=== PATIENT | female | born 1990 | race Caucasian/White ===

== ENCOUNTER 2016-06-24 12:08 | Emergency (ER) | payer BC ==
[2016-06-24 13:07] VITALS: BP 93/59
--- NOTE | 2016-06-24 13:30 | UC ---
Abdominal Pain Female HPI - HPI Summary HPI Summary: Constant epigastric pain x 1 week with nausea in the morning, worse after eating. Had 2 episodes of watery brown stool last night and one more this morning. Denies emesis, blood in stool, fever. Had similar sx about 10 years ago , was told she might have developed ulcers at that time but no f/u. Has been under a lot of stress in work and personal life recently. Took antidiarrheal last night and pill for her stomach that started with a G (thinks it was gaviscon) this morning -- the stomach pill helped a bit. - History of Current Complaint Chief Complaint: UCAbdominalPain Stated Complaint: STOMACH PAIN Time Seen by Provider: 06/24/16 12:53 Hx Obtained From: Patient Hx Last Menstrual Period: 06/14/16 ?: No Onset/Duration: Gradual Onset, Lasting Days Timing: Constant Severity Initially: Mild Severity Currently: Moderate Location: Epigastric Radiates: No Character: Aching, Other - "feels empty" Aggravating Factor(s): Food Alleviating Factor(s): Antacids Allergies/Adverse Reactions: Allergies Allergy/AdvReac Type Severity Reaction Status Date / Time No Known Allergies Allergy Verified 06/24/16 12:58 PMH/Surg Hx/FS Hx/Imm Hx Endocrine History Of: Reports: Thyroid Disease - "slightly hyperthyroid" Denies: Diabetes Cardiovascular History Of: Denies: Cardiac Disorders, Hypertension Respiratory History Of: Denies: COPD, Asthma GI/ History Of: Denies: Ulcer - Surgical History Surgical History: Yes Surgery Procedure, Year, and Place: GANGLION CYST REMOVAL (10 years ago). right wrist tendonitis (10 years ago) - Family History Known Family History: Positive: None, Hypertension - father Negative: Diabetes, Renal Disease - Social History Occupation: Employed Full-time Alcohol Use: Occasionally Alcohol Amount: 3 drinks/once a month Substance Use Type: None Smoking Status (MU): Light Every Day Tobacco Smoker Type: Cigarettes Amount Used/How Often: 1/3 pack per day Length of Time of Smoking/Using Tobacco: 8 years Have You Smoked in the Last Year: Yes - Immunization History Most Recent Influenza Vaccination: none Most Recent Tetanus Shot: unknown Most Recent Pneumonia Vaccination: unknown Review of Systems Constitutional: Negative Skin: Negative Eyes: Negative ENT: Negative Respiratory: Negative Cardiovascular: Negative Gastrointestinal: Abdominal Pain, Diarrhea Genitourinary: Negative Motor: Negative Neurovascular: Negative Musculoskeletal: Negative Neurological: Negative Psychological: Negative All Other Systems Reviewed And Are Negative: Yes Physical Exam Triage Information Reviewed: Yes Appearance: Well-Nourished, Pain Distress - holding abdomen Vital Signs: Initial Vital Signs Temp 97.8 F 06/24/16 12:55 Pulse 62 06/24/16 12:55 Resp 16 06/24/16 12:55 BP 93/59 06/24/16 12:55 Pulse Ox 100 06/24/16 12:55 Vital Signs Reviewed: Yes Eye Exam: Normal Eyes: Positive: Conjunctiva Clear ENT Exam: Normal ENT: Positive: Normal ENT inspection, Hearing grossly normal, Pharynx normal, TMs normal Dental Exam: Normal Neck exam: Normal Neck: Positive: Supple, Nontender, No Lymphadenopathy Respiratory Exam: Normal Respiratory: Positive: Chest non-tender, Lungs clear, Normal breath sounds, No respiratory distress, No accessory muscle use Cardiovascular Exam: Normal Cardiovascular: Positive: RRR, No Murmur Abdomen Description: Positive: No Organomegaly, Soft, Other: - mild tenderness in epigastric area. Negative: CVA Tenderness (R), CVA Tenderness (L), Distended , Guarding Musculoskeletal Exam: Normal Musculoskeletal: Positive: Strength Intact, ROM Intact Neurological Exam: Normal Neurological: Positive: Alert Psychological Exam: Normal Skin Exam: Normal Abd Pain Female Course/Dx - Differential Dx/Diagnosis Provider Diagnoses: gastritis. epigastric pain Discharge - Discharge Plan Condition: Stable Disposition: HOME Prescriptions: Omeprazole CAP* [Prilosec CAP* 20 MG] 20 mg PO BID #60 cap. Ondansetron TAB* [Zofran 4 MG Tab*] 4 mg PO Q6H PRN #20 tab PRN Reason: Nausea Patient Education Materials: Gastritis (ED), Epigastric Pain (ED) Forms: *Work Release Referrals: Vini Hopkins MD [Medical Doctor] - 2 Weeks Additional Instructions: Try eating a bland diet without greasy, spicy, or acidic food. If your symptoms improve, you can slowly add food back in to see if you have any particular triggers.
== END 2016-06-24 13:57 | disposition home or self-care (01) ==
LOC: UCCORT 12:08
DX: K29.70 Gastritis, unspecified, without bleeding (principal); R10.13 Epigastric pain; Z32.02 Encounter for pregnancy test, result negative; F17.210 Nicotine dependence, cigarettes, uncomplicated
CPT/HCPCS: 81003; 84702; 99212; G0463

== ENCOUNTER 2016-09-07 11:10 | Emergency (ER) | payer BC ==
[2016-09-07 11:28] VITALS: BP 101/52
--- NOTE | 2016-09-07 12:06 | UC ---
UC General HPI - HPI Summary HPI Summary: multiple joint pain x 1 week pain on both wrist, and both knees x 1 week , pain radiates to the forearm and thighs no fever, no chills, no known injury , no significant pmhx or family hx of autoimmune disease. - History of Current Complaint Chief Complaint: UCGeneralIllness Stated Complaint: ACHY EXTREMITIES Time Seen by Provider: 09/07/16 11:18 Hx Obtained From: Patient Onset/Duration: Gradual Onset, Lasting Days - 7, Still Present Timing: Constant Onset Severity: Moderate Current Severity: Moderate Pain Intensity: 5 Character: pain and achy Associated Signs & Symptoms: Positive: Weakness, Other - multiple joint pain. Negative: Agitation, Abdominal Pain, Anticoagulation Therapy, Back Pain, Confusion, Cough, Chest Pain, Palpitations - Allergy/Home Medications Allergies/Adverse Reactions: Allergies Allergy/AdvReac Type Severity Reaction Status Date / Time No Known Allergies Allergy Verified 09/07/16 11:22 Home Medications: Home Medications Acetaminophen [Acetaminophen Extra Stren] 500 mg PO Q4H PRN 09/07/16 [History Confirmed 09/07/16] PMH/Surg Hx/FS Hx/Imm Hx Previously Healthy: Yes - Surgical History Surgical History: Yes Surgery Procedure, Year, and Place: GANGLION CYST REMOVAL (10 years ago). right wrist tendonitis (10 years ago) - Family History Known Family History: Positive: None, Hypertension - father Negative: Diabetes, Renal Disease - Social History Alcohol Use: Occasionally Alcohol Amount: 3 drinks/once a month Substance Use Type: None Smoking Status (MU): Light Every Day Tobacco Smoker Type: Cigarettes Amount Used/How Often: 1/3 PPD Length of Time of Smoking/Using Tobacco: Since Age 16 (quit for 3 years) Have You Smoked in the Last Year: Yes - Immunization History Most Recent Influenza Vaccination: Not the 2016/2017 Season Most Recent Tetanus Shot: unknown Most Recent Pneumonia Vaccination: unknown Review of Systems Constitutional: Fatigue Skin: Negative Eyes: Negative ENT: Negative Respiratory: Negative Gastrointestinal: Negative Neurovascular: Negative Musculoskeletal: Arthralgia, Myalgia All Other Systems Reviewed And Are Negative: Yes Physical Exam Triage Information Reviewed: Yes Appearance: Well-Appearing, No Pain Distress, Well-Nourished Vital Signs: Initial Vital Signs Temp 98.7 F 09/07/16 11:19 Pulse 64 09/07/16 11:19 Resp 14 09/07/16 11:19 BP 101/52 09/07/16 11:19 Pulse Ox 100 09/07/16 11:19 Vital Signs Reviewed: Yes Eyes: Positive: Conjunctiva Clear ENT: Positive: Normal ENT inspection, Hearing grossly normal, Pharynx normal Neck: Positive: Supple, Nontender, No Lymphadenopathy Respiratory: Positive: Chest non-tender, Lungs clear, Normal breath sounds Cardiovascular: Positive: RRR, No Murmur, Pulses Normal Abdominal Exam: Normal Abdomen Description: Positive: Nontender, Soft Bowel Sounds: Positive: Present Musculoskeletal: Positive: Strength Intact, ROM Intact, No Edema, Other: - no joint tenderness , no swelling. Negative: Strength Limited @, ROM Limited @, Edema @ Skin Exam: Normal Course/Dx - Differential Dx - Multi-Symptom Provider Diagnoses: polyarthritis Discharge - Discharge Plan Condition: Stable Disposition: HOME Prescriptions: Prednisone 20 mg PO DAILY #10 tab Patient Education Materials: Musculoskeletal Pain (ED) Referrals: No Primary Care Phys,NOPCP [Medical Doctor] - 5 Days Additional Instructions: WILL CHECK CBC, TSH, SED RATE , LITA CALL THE OFFICE IN 2 DAYS FOR THE RESULTS . FOLLOW UP WITH YOUR PCP IN 2 DAYS
[2016-09-07 14:20] LABS: Hematocrit 39 % (35-47); Hemoglobin 13.2 g/dl (12.0-16.0); Mean Corpuscular HGB Conc 34 g/dl (31-36); Mean Corpuscular Hemoglobin 31 pg (27-31); Mean Corpuscular Volume 92 fL (80-97); Mean Platelet Volume 9 um3 (7.4-10.4); Red Blood Count 4.25 10^6/ul (4.0-5.4); Red Cell Distribution Width 13 % (10.5-15); White Blood Count 6.2 10^3/ul (3.5-10.8)
[2016-09-07 18:49] LABS: Erythrocyte Sed Rate 10 mm/Hr (0-14)
== END 2016-09-07 11:58 | disposition home or self-care (01) ==
LOC: UCCORT 11:10
DX: M25.50 Pain in unspecified joint (principal); F17.210 Nicotine dependence, cigarettes, uncomplicated
CPT/HCPCS: 36415; 84443; 85025; 85652; 86038; 99212; G0463